=== PATIENT | female | born 1945 | race Caucasian/White ===

== ENCOUNTER 2018-04-14 17:34 | Inpatient (IN) | payer MEDICARE, MEDICAID ==
[~2018-04-14] VITALS: Ht 170.2 cm; Wt 79.6 kg
[~2018-04-14 17:34] MED LIST: ALBU5SOL6 INH; ALBU8.5H8 INH; AMLO5TAB4 PO; ASCO500T6 PO; AZIT250T89 PO; CALC200T3 PO; CEFD300C37 PO; DOXY100T PO; FAMO-79 PO; FAMO20TA7 PO; FAMO40TA61 PO; FERR324T5 PO; FLUT1DIS5 IH; HYDR-3341 PO; HYDR25TA6 PO; LEVO750T26 PO; LISI-170 PO; MECL12.52 PO; NICO-487 TD; OMEP-110 PO; OMEP20TA62 PO; OMEP40CA6 PO; PRED10TA PO; PRED20TA PO; TIOT18CA INH; UMEC62.5 INH; URSO300C27 PO; VALS160T27 PO; VALS160T3 PO; VALS80TA3 PO; VERA240C2 PO
[2018-04-14] MEDS ORDERED: ASPIRIN 81 MG TABLET CHEW PO ONE (18:30)
[2018-04-14] MEDS ORDERED: SODIUM CHLORIDE 0.9% 1,000ML IVBOLUS ONE (18:30)
[2018-04-14] MEDS ORDERED: DIOVAN PO (18:42)
[2018-04-14] MEDS ORDERED: CHOL200074 PO (18:42)
[2018-04-14] MEDS ORDERED: LIDO700A20 TD (18:42)
[2018-04-14] MEDS ORDERED: LEVA15HF4 INH (18:42)
[2018-04-14 18:44] LABS: ALANINE AMINOTRANSFERASE 33 U/L (12-78); ANION GAP 5 mmol/L (5-15); CALCIUM 9.6 mg/dL (8.5-10.1); CHLORIDE 105 mmol/L (98-107); CREATININE 0.74 mg/dL (0.55-1.02)
[2018-04-14] MEDS ORDERED: NITR0.4T28 SL (18:45)
[2018-04-14 18:46] LABS: MEAN CORPUSCULAR HEMOGLOBIN 27.1 pg (27.0-34.8); MEAN CORPUSCULAR HGB CONC 32.2 g/dL (32.4-35.8); MEAN CORPUSCULAR VOLUME 84.1 fL (80-100); MEAN PLATELET VOLUME 8.6 fL (7.4-10.4); PLATELET COUNT 336 x10^3/uL (130-400); RED BLOOD COUNT 3.89 x10^6/uL (3.82-5.3); RED CELL DISTRIBUTION WIDTH 15.5 % (9.6-15.2)
[2018-04-14 18:48] LABS: ALKALINE PHOSPHATASE 175 U/L (45-117); BILIRUBIN,TOTAL 0.2 mg/dL (0.2-1.0); TOTAL PROTEIN 6.2 g/dL (6.4-8.2); TROPONIN I 0.037 ng/mL (0.000-0.045)
[2018-04-14 19:11] LABS: MD YES
[2018-04-14 19:12] LABS: EOS#(MANUAL) 0.19 x10^3/uL (0.0-0.4); EOS% (MANUAL) 2 % (1-7); LYMPH#(MANUAL) 2.21 x10^3/uL (1-3.4); LYMPHS% (MANUAL) 23 % (22-44); MONOS#(MANUAL) 0.96 x10^3/uL (0.3-2.7); MONOS% (MANUAL) 10 % (2-9); SEG#(MANUAL) 6.24 x10^3/uL (1.8-6.8); SEGS% (MANUAL) 65 % (42-75)
[2018-04-14 19:14] LABS: <PLATELET ESTIMATE> ADEQUATE; <PLT MORPHOLOGY> NORMAL PLT MORPH; <RBC MORPHOLOGY> NORMAL
[2018-04-14] MEDS ORDERED: OMNIPAQUE 350 MG/ML, 100ML BOTTLE ONE (19:16)
[2018-04-14] MEDS ORDERED: KETAMINE 100 MG/ML, 5ML IV ONE (19:30)
[2018-04-14] MEDS ORDERED: POTASSIUM CHLORIDE 20 MEQ TAB.ER.PRT PO ONE (19:30)
[2018-04-14] MEDS ORDERED: POTASSIUM CHLORIDE 20 MEQ TAB.ER.PRT ONE (20:19)
[2018-04-14] MEDS ORDERED: morphine SULFATE 10 MG/ML, 1ML IVPush PRN (21:00)
[2018-04-14] MEDS ORDERED: ONDANSETRON ODT 4 MG PO PRN (21:00)
[2018-04-14] MEDS ORDERED: DOCUSATE 100 MG CAPSULE PO PRN (21:00)
[2018-04-14] MEDS ORDERED: NITROGLYCERIN 0.4 MG BOTTLE (25 TABS) SL PRN ×2 (21:00→21:30)
[2018-04-14] MEDS ORDERED: ZOLPIDEM 5MG TABLET PO PRN (21:00)
[2018-04-14] MEDS ORDERED: NITROGLYCERIN 0.4 MG/SPRAY SL PRN (21:00)
[2018-04-14] MEDS: LIDODERM 5% PATCH TD SCH (21:30)
[2018-04-14] MEDS ORDERED: LEVALBUTEROL TARTRATE INH SCH (21:30)
[2018-04-14 21:47] LABS: TROPONIN I 0.096 ng/mL (0.000-0.045)
[2018-04-14] MEDS: FLUTICASONE/VILANTEROL 200-25MCG/INH INH SCH (21:49)
[2018-04-14] MEDS ORDERED: ALBUTEROL SULFATE 2.5 MG/3 ML HHN PRN (22:00)
[2018-04-14 22:02] VITALS: BP 154/83
[2018-04-14 22:17] VITALS: BP 154/83
[2018-04-14] MEDS: ENOXAPARIN 40 MG/0.4 ML SQ SCH (22:28)
[2018-04-14] MEDS: URSODIOL 300 MG CAPSULE PO SCH (22:28)
[2018-04-15] MEDS ORDERED: POTASSIUM CHLORIDE 20 MEQ TAB.ER.PRT PO ONE
[2018-04-15 00:03] LABS: ANION GAP 3 mmol/L (5-15); CALCIUM 9.4 mg/dL (8.5-10.1); CHLORIDE 105 mmol/L (98-107); CREATININE 0.64 mg/dL (0.55-1.02)
[2018-04-15] MEDS: HYDROcodone/APAP 5/325 TABLET PO PRN (01:21)
[2018-04-15 01:41] VITALS: BP 176/82
[2018-04-15 03:09] LABS: TROPONIN I 0.082 ng/mL (0.000-0.045)
[2018-04-15] MEDS: ASPIRIN 81 MG TABLET EC PO SCH (05:21)
[2018-04-15 06:37] VITALS: BP 178/80
[2018-04-15] MEDS: URSODIOL 300 MG CAPSULE PO SCH ×2 (07:36→20:06)
[2018-04-15] MEDS: ASCORBIC ACID 500 MG TABLET PO SCH (07:36)
[2018-04-15] MEDS: CHOLECALCIFEROL 1,000 UNIT TABLET PO SCH (07:36)
[2018-04-15] MEDS: FERROUS SULFATE 325 MG TABLET PO SCH (07:37)
[2018-04-15] MEDS: FLUTICASONE/VILANTEROL 200-25MCG/INH INH SCH (09:24)
[2018-04-15] MEDS: methylPREDNISolone SOD SUCC 125 MG/2 ML IVPush SCH ×3 (09:24→20:26)
[2018-04-15] MEDS: GUAIFENESIN ER 600 MG TABLET PO SCH ×2 (09:24→20:06)
[2018-04-15] MEDS: ALBUTEROL SULFATE 2.5 MG/3 ML NPPB SCH ×3 (10:20→20:25)
[2018-04-15 12:08] VITALS: BP 169/79
[2018-04-15 19:29] VITALS: BP 173/87
[2018-04-15] MEDS: ENOXAPARIN 40 MG/0.4 ML SQ SCH (20:25)
[2018-04-15] MEDS: LIDODERM 5% PATCH TD SCH (20:46)
[2018-04-16 00:46] VITALS: BP 149/94
[2018-04-16] MEDS: methylPREDNISolone SOD SUCC 125 MG/2 ML IVPush SCH ×3 (03:18→15:44)
[2018-04-16] MEDS: ASPIRIN 81 MG TABLET EC PO SCH (05:18)
[2018-04-16] MEDS: ALBUTEROL SULFATE 2.5 MG/3 ML NPPB SCH ×4 (07:05→21:15)
[2018-04-16 07:16] VITALS: BP 177/84
[2018-04-16] MEDS: FLUTICASONE/VILANTEROL 200-25MCG/INH INH SCH (08:52)
[2018-04-16] MEDS: GUAIFENESIN ER 600 MG TABLET PO SCH ×2 (08:52→20:15)
[2018-04-16] MEDS: CHOLECALCIFEROL 1,000 UNIT TABLET PO SCH (08:53)
[2018-04-16] MEDS: FERROUS SULFATE 325 MG TABLET PO SCH (08:53)
[2018-04-16] MEDS: URSODIOL 300 MG CAPSULE PO SCH ×2 (08:53→20:14)
[2018-04-16] MEDS: ASCORBIC ACID 500 MG TABLET PO SCH (08:53)
[2018-04-16] MEDS ORDERED: POTASSIUM CHLORIDE 20 MEQ TAB.ER.PRT PO ONE (09:30)
[2018-04-16 09:54] LABS: ALBUMIN 2.9 g/dL (3.4-5.0); ANION GAP 7 mmol/L (5-15); CALCIUM 9.7 mg/dL (8.5-10.1); CHLORIDE 102 mmol/L (98-107); CREATININE 0.68 mg/dL (0.55-1.02)
[2018-04-16 10:00] VITALS: BP 155/81
[2018-04-16 10:19] LABS: MEAN CORPUSCULAR HEMOGLOBIN 26.5 pg (27.0-34.8); MEAN CORPUSCULAR HGB CONC 31.4 g/dL (32.4-35.8); MEAN CORPUSCULAR VOLUME 84.5 fL (80-100); MEAN PLATELET VOLUME 8.2 fL (7.4-10.4); PLATELET COUNT 317 x10^3/uL (130-400); RED BLOOD COUNT 3.01 x10^6/uL (3.82-5.3); RED CELL DISTRIBUTION WIDTH 15.9 % (9.6-15.2)
[2018-04-16 10:45] LABS: BASOPHILS % (AUTO) 0 % (0-1); EOSINOPHILS % (AUTO) 0 % (1-7); LYMPHOCYTES # (AUTO) 0.41 x10^3/uL (1-3.4); LYMPHOCYTES % (AUTO) 3 % (22-44); MD SCAN; MONOCYTES # (AUTO) 0.23 x10^3/uL (0.2-0.8); MONOCYTES % (AUTO) 2 % (2-9); NEUTROPHILS # (AUTO) 11.83 x10^3/uL (1.8-6.8); NEUTROPHILS % (AUTO) 95 % (42-75)
[2018-04-16 12:21] VITALS: BP 153/79
[2018-04-16 19:32] VITALS: BP 176/82
[2018-04-16] MEDS: ENOXAPARIN 40 MG/0.4 ML SQ SCH (20:15)
[2018-04-16] MEDS: LIDODERM 5% PATCH TD SCH (21:30)
[2018-04-16 21:51] VITALS: BP 167/81
[2018-04-17] VITALS (12 sets, daily range): BP systolic 138–191; BP diastolic 65–84
[2018-04-17] MEDS: methylPREDNISolone SOD SUCC 125 MG/2 ML IVPush SCH ×2 (03:15→15:45)
[2018-04-17] MEDS: ASPIRIN 81 MG TABLET EC PO SCH (05:52)
[2018-04-17 06:00] LABS: BASOPHILS # (AUTO) 0.01 x10^3/uL (0-0.1); BASOPHILS % (AUTO) 0 % (0-1); EOSINOPHILS % (AUTO) 0 % (1-7); LYMPHOCYTES # (AUTO) 0.55 x10^3/uL (1-3.4); LYMPHOCYTES % (AUTO) 4 % (22-44); MD NO; MEAN CORPUSCULAR HEMOGLOBIN 27.5 pg (27.0-34.8); MEAN CORPUSCULAR HGB CONC 32.7 g/dL (32.4-35.8); MEAN CORPUSCULAR VOLUME 84.2 fL (80-100); MEAN PLATELET VOLUME 7.8 fL (7.4-10.4); MONOCYTES # (AUTO) 0.51 x10^3/uL (0.2-0.8); MONOCYTES % (AUTO) 4 % (2-9); NEUTROPHILS # (AUTO) 11.88 x10^3/uL (1.8-6.8); NEUTROPHILS % (AUTO) 92 % (42-75); PLATELET COUNT 269 x10^3/uL (130-400); RED BLOOD COUNT 2.43 x10^6/uL (3.82-5.3); RED CELL DISTRIBUTION WIDTH 16.3 % (9.6-15.2)
[2018-04-17 06:12] LABS: ANION GAP 3 mmol/L (5-15); CALCIUM 9.1 mg/dL (8.5-10.1); CHLORIDE 103 mmol/L (98-107); CREATININE 0.75 mg/dL (0.55-1.02)
[2018-04-17] MEDS: ALBUTEROL SULFATE 2.5 MG/3 ML NPPB SCH ×3 (07:10→21:14)
[2018-04-17] MEDS: FERROUS SULFATE 325 MG TABLET PO SCH (09:13)
[2018-04-17] MEDS: CHOLECALCIFEROL 1,000 UNIT TABLET PO SCH (09:13)
[2018-04-17] MEDS: ASCORBIC ACID 500 MG TABLET PO SCH (09:13)
[2018-04-17] MEDS: URSODIOL 300 MG CAPSULE PO SCH ×2 (09:13→21:27)
[2018-04-17] MEDS: GUAIFENESIN ER 600 MG TABLET PO SCH ×2 (09:13→21:27)
[2018-04-17] MEDS: FLUTICASONE/VILANTEROL 200-25MCG/INH INH SCH (09:14)
[2018-04-17 14:17] LABS: OCCULT BLOOD POSITIVE (NEGATIVE)
[2018-04-17] MEDS: FAMOTIDINE 20 MG TABLET PO SCH (21:27)
[2018-04-17] MEDS: LIDODERM 5% PATCH TD SCH (21:28)
[2018-04-17] MEDS: HYDROcodone/APAP 5/325 TABLET PO PRN (22:28)
[2018-04-17] MEDS: LABETALOL 5MG/ML, 20ML IVPush PRN (22:29)
[2018-04-17] MEDS: ENALAPRILAT 1.25 MG/ML, 2ML IVPush PRN (23:41)
[2018-04-18] VITALS (8 sets, daily range): BP systolic 162–187; BP diastolic 74–87
[2018-04-18] MEDS: ENALAPRILAT 1.25 MG/ML, 2ML IVPush PRN (00:01)
[2018-04-18] MEDS: LABETALOL 5MG/ML, 20ML IVPush PRN ×2 (01:11→03:17)
[2018-04-18] MEDS: methylPREDNISolone SOD SUCC 125 MG/2 ML IVPush SCH ×2 (03:16→15:37)
[2018-04-18 05:39] LABS: BASOPHILS % (AUTO) 0 % (0-1); EOSINOPHILS % (AUTO) 0 % (1-7); LYMPHOCYTES # (AUTO) 0.67 x10^3/uL (1-3.4); LYMPHOCYTES % (AUTO) 5 % (22-44); MD NO; MEAN CORPUSCULAR HEMOGLOBIN 28.3 pg (27.0-34.8); MEAN CORPUSCULAR HGB CONC 32.9 g/dL (32.4-35.8); MEAN CORPUSCULAR VOLUME 86.1 fL (80-100); MEAN PLATELET VOLUME 8.2 fL (7.4-10.4); MONOCYTES # (AUTO) 0.68 x10^3/uL (0.2-0.8); MONOCYTES % (AUTO) 5 % (2-9); NEUTROPHILS # (AUTO) 12.53 x10^3/uL (1.8-6.8); NEUTROPHILS % (AUTO) 90 % (42-75); PLATELET COUNT 247 x10^3/uL (130-400); RED BLOOD COUNT 2.98 x10^6/uL (3.82-5.3)
[2018-04-18 05:42] LABS: ANION GAP 2 mmol/L (5-15); CALCIUM 9.1 mg/dL (8.5-10.1); CHLORIDE 102 mmol/L (98-107)
[2018-04-18 05:45] LABS: CREATININE 0.53 mg/dL (0.55-1.02)
[2018-04-18] MEDS: ASCORBIC ACID 500 MG TABLET PO SCH (08:49)
[2018-04-18] MEDS: FLUTICASONE/VILANTEROL 200-25MCG/INH INH SCH (08:49)
[2018-04-18] MEDS: URSODIOL 300 MG CAPSULE PO SCH ×2 (08:49→20:18)
[2018-04-18] MEDS: FERROUS SULFATE 325 MG TABLET PO SCH (08:50)
[2018-04-18] MEDS: GUAIFENESIN ER 600 MG TABLET PO SCH ×2 (08:50→20:19)
[2018-04-18] MEDS: CHOLECALCIFEROL 1,000 UNIT TABLET PO SCH (08:50)
[2018-04-18] MEDS: FAMOTIDINE 20 MG TABLET PO SCH ×2 (08:51→20:00)
[2018-04-18] MEDS: ALBUTEROL SULFATE 2.5 MG/3 ML NPPB SCH ×3 (09:54→19:17)
[2018-04-18] MEDS: LIDODERM 5% PATCH TD SCH (20:00)
[2018-04-19] VITALS (11 sets, daily range): BP systolic 162–186; BP diastolic 67–88
[2018-04-19] MEDS: ENALAPRILAT 1.25 MG/ML, 2ML IVPush PRN (01:48)
[2018-04-19] MEDS: HYDROcodone/APAP 5/325 TABLET PO PRN (02:50)
[2018-04-19] MEDS: methylPREDNISolone SOD SUCC 125 MG/2 ML IVPush SCH ×3 (02:50→20:11)
[2018-04-19] MEDS: LABETALOL 5MG/ML, 20ML IVPush PRN ×2 (02:51→18:56)
[2018-04-19] MEDS: ALBUTEROL SULFATE 2.5 MG/3 ML NPPB SCH ×4 (06:55→19:49)
[2018-04-19] MEDS: FAMOTIDINE 20 MG TABLET PO SCH ×2 (09:00→20:12)
[2018-04-19] MEDS: URSODIOL 300 MG CAPSULE PO SCH ×2 (09:47→20:11)
[2018-04-19] MEDS: GUAIFENESIN ER 600 MG TABLET PO SCH ×2 (09:48→20:12)
[2018-04-19] MEDS: CHOLECALCIFEROL 1,000 UNIT TABLET PO SCH (09:48)
[2018-04-19] MEDS: ASCORBIC ACID 500 MG TABLET PO SCH (09:49)
[2018-04-19] MEDS: AZITHROMYCIN 250 MG TABLET PO SCH (09:49)
[2018-04-19] MEDS: FLUTICASONE/VILANTEROL 200-25MCG/INH INH SCH (09:56)
[2018-04-19] MEDS: FERROUS SULFATE 325 MG TABLET PO SCH (09:56)
[2018-04-19] MEDS ORDERED: AMLODIPINE 5 MG TABLET PO ONE (17:00)
[2018-04-19] MEDS: LIDODERM 5% PATCH TD SCH (20:12)
[2018-04-20] VITALS (10 sets, daily range): BP systolic 154–192; BP diastolic 70–93
[2018-04-20] MEDS: ENALAPRILAT 1.25 MG/ML, 2ML IVPush PRN ×3 (03:02→10:12)
[2018-04-20] MEDS: LABETALOL 5MG/ML, 20ML IVPush PRN (05:42)
[2018-04-20] MEDS: ALBUTEROL SULFATE 2.5 MG/3 ML NPPB SCH (07:00)
[2018-04-20] MEDS: methylPREDNISolone SOD SUCC 125 MG/2 ML IVPush SCH (08:25)
[2018-04-20] MEDS: URSODIOL 300 MG CAPSULE PO SCH (08:25)
[2018-04-20] MEDS: CHOLECALCIFEROL 1,000 UNIT TABLET PO SCH (08:26)
[2018-04-20] MEDS: FAMOTIDINE 20 MG TABLET PO SCH (08:26)
[2018-04-20] MEDS: ASCORBIC ACID 500 MG TABLET PO SCH (08:26)
[2018-04-20] MEDS: GUAIFENESIN ER 600 MG TABLET PO SCH (08:26)
[2018-04-20] MEDS: AZITHROMYCIN 250 MG TABLET PO SCH (08:27)
[2018-04-20] MEDS: FERROUS SULFATE 325 MG TABLET PO SCH (08:27)
[2018-04-20] MEDS ORDERED: AMLODIPINE 5 MG TABLET PO SCH (09:00)
[2018-04-20] MEDS: FLUTICASONE/VILANTEROL 200-25MCG/INH INH SCH (10:06)
[2018-04-20] MEDS ORDERED: AMLODIPINE 5 MG TABLET PO STA (11:23)
[2018-04-20] MEDS ORDERED: DOXYCYCLINE 100MG CAP PO SCH (12:00)
[2018-04-20] MEDS ORDERED: ALBUTEROL SULFATE 2.5 MG/3 ML NPPB SCH (16:00)
[2018-04-20] MEDS ORDERED: predniSONE 50MG TABLET PO SCH (17:00)
[2018-04-20] MEDS ORDERED: PRED50TA PO (18:16)
[2018-04-20] MEDS ORDERED: GUAI600T31 PO (18:16)
[2018-04-20] MEDS ORDERED: PRED20TA PO (18:16)
[2018-04-20] MEDS ORDERED: AMLO5TAB2 PO (18:16)
[2018-04-20] MEDS ORDERED: PRED5TAB PO (18:16)
[2018-04-20] MEDS ORDERED: PRED10TA PO (18:16)
[2018-04-20] MEDS ORDERED: DOXY100C2 PO (18:16)
[2018-04-20] MEDS ORDERED: FAMO20TA7 PO (18:16)
[2018-04-21] MEDS ORDERED: AMLODIPINE 5 MG TABLET PO SCH (09:00)
== END 2018-04-20 19:02 | disposition home or self-care (01) | DRG 189 ==
LOC: ED 19:39 → 4WST 21:28
PROVIDERS: ADMIT Family Medicine; ATTEND Family Medicine
PROC: 30233N1 Transfusion of Nonautologous Red Blood Cells into Peripheral Vein, Percutaneous Approach (ICD-10-PCS; principal; 2018-04-17)
DX: J96.20 Acute and chronic respiratory failure, unspecified whether with hypoxia or hypercapnia (principal); J44.1 Chronic obstructive pulmonary disease with (acute) exacerbation; E87.0 Hyperosmolality and hypernatremia; K92.2 Gastrointestinal hemorrhage, unspecified; R07.9 Chest pain, unspecified; D63.8 Anemia in other chronic diseases classified elsewhere; E87.6 Hypokalemia; F17.200 Nicotine dependence, unspecified, uncomplicated; I11.9 Hypertensive heart disease without heart failure; Z79.82 Long term (current) use of aspirin; Z82.49 Family history of ischemic heart disease and other diseases of the circulatory system; Z80.9 Family history of malignant neoplasm, unspecified; Z90.710 Acquired absence of both cervix and uterus; Z99.81 Dependence on supplemental oxygen; Z71.6 Tobacco abuse counseling; Z88.0 Allergy status to penicillin
CPT/HCPCS: 36415; 71045; 71046; 71275; 80048; 80053; 82040; 82272; 82728; 83540; 83550; 83880; 84484; 85014; 85018; 85025; 86850; 86900; 86923; 93005; 94640; 96360; 96361; J1650; J7613; Q9967; J2930; J7030; J7512; P9016

== ENCOUNTER → 2018-06-18 | Outpatient (CLI) | payer MEDICARE, OTHER ==
[~2018-06-18] MED LIST changes: +AMLO5TAB7 PO; +CHOL200074 PO; +DIOVAN PO; +DOXY100C2 PO; +GUAI600T31 PO; +LEVA15HF4 INH; +LIDO700A20 TD; +NITR0.4T28 SL; +PRED50TA PO; +PRED5TAB PO
== END | disposition home or self-care (01) ==
LOC: CFH 10:27
PROVIDERS: ATTEND Physician Assistant
DX: K74.3 Primary biliary cirrhosis (principal); J44.9 Chronic obstructive pulmonary disease, unspecified; D50.9 Iron deficiency anemia, unspecified; R68.81 Early satiety
CPT/HCPCS: 76705

== ENCOUNTER 2018-11-07 01:43 | Inpatient (IN) | payer MEDICARE, MEDICAID ==
[~2018-11-07] VITALS: Ht 165.1 cm; Wt 82.2 kg
[~2018-11-07 01:43] MED LIST changes: +AMLO-150 PO; -AMLO5TAB7 PO
[2018-11-07] MEDS ORDERED: ALBUTEROL/IPRATROPIUM 2.5MG/0.5MG, 3 ML ONE ×2 (01:47→05:02)
--- NOTE | 2018-11-07 01:48 | NUR ---
PT BROUGHT IN BY [facility] FOR DIFFICULTY BREATHING. CURRENTLY ON NEB TX, PT RECENTLY VOMITED. EMS GAVE 4MG OF ZOFRAN AND [facility] ANOTHER 4MG. PT HAD 3 ALBUTEROL TX AT HOME, TO WITH EMS AND 2 MORE IN FLIGHT ALONG WITH AN ATROVENT TX. PT INITIAL SATS IN MID 60'S ON SCENE, MID 90'S IN FLIGHT. PT IS TRIPODING AND USING ACCESSORY MUSCELS TO BREATH, APPEARS TO BE TIRING. MD AT BEDSIDE
[2018-11-07] MEDS ORDERED: CEFTRIAXONE 1,000 MG ONE (01:55)
[2018-11-07] MEDS ORDERED: methylPREDNISolone SOD SUCC 125 MG/2 ML ONE (01:56)
[2018-11-07] MEDS ORDERED: LIDOCAINE-MPF 1%, 2ML ONE (01:57)
[2018-11-07] MEDS ORDERED: CEFTRIAXONE 1,000 MG IM ONE (02:00)
[2018-11-07] MEDS ORDERED: AZITHROMYCIN 500 MG in SODIUM CHLORIDE 0.9% 250 ML IVPB ONE (02:00)
[2018-11-07] MEDS ORDERED: methylPREDNISolone SOD SUCC 125 MG/2 ML IVP ONE (02:00)
--- NOTE | 2018-11-07 02:19 | NUR ---
CRITICAL LAB, pH 7.197, CO2 TEMP CORRECT 88.1, CO2 NON TEMP CORRECT 90.4
[2018-11-07] MEDS ORDERED: PROMETHAZINE 25 MG/ML, 1ML ONE (02:28)
[2018-11-07 02:29] LABS: ALANINE AMINOTRANSFERASE 27 U/L (12-78); ALBUMIN 3.5 g/dL (3.4-5.0); ANION GAP 3 mmol/L (5-15); CALCIUM 10.2 mg/dL (8.5-10.1); CHLORIDE 106 mmol/L (98-107); CREATININE 0.72 mg/dL (0.55-1.02)
[2018-11-07] MEDS ORDERED: CEFTRIAXONE PMX 1GM/50ML 50 ML ONE (02:29)
[2018-11-07] MEDS ORDERED: PROMETHAZINE 25 MG/ML, 1ML IM ONE (02:30)
[2018-11-07] MEDS ORDERED: CEFTRIAXONE PMX 1GM/50ML 50 ML IV ONE (02:30)
[2018-11-07 02:33] LABS: ALKALINE PHOSPHATASE 236 U/L (45-117); BILIRUBIN,TOTAL 0.3 mg/dL (0.2-1.0); TOTAL PROTEIN 6.7 g/dL (6.4-8.2); TROPONIN I 0.076 ng/mL (0.000-0.045)
--- NOTE | 2018-11-07 02:34 | NUR ---
assumed care for this pt.
--- NOTE | 2018-11-07 02:37 | NUR ---
PT MOVED TO T-3 FOR CLOSER WATCHING ON BI PAP. PT REPORTS BREATING IMPROVED AND. NAUSEA. IV MEDS RUNNING ORDERED.
[2018-11-07 02:51] LABS: BASOPHILS # (AUTO) 0.05 x10^3/uL (0-0.1); BASOPHILS % (AUTO) 0 % (0-1); EOSINOPHILS # (AUTO) 0.12 x10^3/uL (0-0.4); EOSINOPHILS % (AUTO) 1 % (1-7); LYMPHOCYTES % (AUTO) 5 % (22-44); MD NO; MEAN CORPUSCULAR HEMOGLOBIN 26.7 pg (27.0-34.8); MEAN CORPUSCULAR VOLUME 83.6 fL (80-100); MEAN PLATELET VOLUME 8.8 fL (7.4-10.4); MONOCYTES # (AUTO) 0.87 x10^3/uL (0.2-0.8); MONOCYTES % (AUTO) 6 % (2-9); NEUTROPHILS # (AUTO) 13.86 x10^3/uL (1.8-6.8); NEUTROPHILS % (AUTO) 89 % (42-75); PLATELET COUNT 362 x10^3/uL (130-400); RED BLOOD COUNT 5.06 x10^6/uL (3.82-5.3); RED CELL DISTRIBUTION WIDTH 17.9 % (9.6-15.2)
--- NOTE | 2018-11-07 03:14 | NUR ---
PT WITH FLU SWAB SENT TO THE LAB. DAUGHTER REMAINS AT BEDSIDE.
--- NOTE | 2018-11-07 03:59 | NUR ---
ADMIT MD TO BEDSIDE AWAITING ORDERS AND TRANSPORT TO CCU.
[2018-11-07 04:11] LABS: RAPID INFLUENZA A Negative (Negative); RAPID INFLUENZA B Negative (Negative)
[2018-11-07] MEDS ORDERED: GUAIFENESIN/DM 200-20MG, 10ML UDC PO PRN (04:30)
[2018-11-07] MEDS ORDERED: NITROGLYCERIN 0.4 MG BOTTLE (25 TABS) SL PRN (05:00)
[2018-11-07] MEDS ORDERED: TEMPLATE NON-FORMULARY MED. (Albuterol Sulfate (Proair Hfa) 2 PUFF(S)) INH PRN (05:00)
[2018-11-07 05:20] VITALS: BP 121/74
[2018-11-07] MEDS ORDERED: ALBUTEROL/IPRATROPIUM 2.5MG/0.5MG, 3 ML NPPB PRN (05:30)
[2018-11-07 05:54] LABS: ALANINE AMINOTRANSFERASE 29 U/L (12-78); ALBUMIN 3.2 g/dL (3.4-5.0); ANION GAP 3 mmol/L (5-15); CALCIUM 9.8 mg/dL (8.5-10.1); CHLORIDE 108 mmol/L (98-107); CREATININE 0.74 mg/dL (0.55-1.02); MEAN CORPUSCULAR HEMOGLOBIN 26.6 pg (27.0-34.8); MEAN CORPUSCULAR VOLUME 83.1 fL (80-100); MEAN PLATELET VOLUME 8.5 fL (7.4-10.4); PLATELET COUNT 300 x10^3/uL (130-400); RED BLOOD COUNT 4.65 x10^6/uL (3.82-5.3); RED CELL DISTRIBUTION WIDTH 15.9 % (9.6-15.2)
[2018-11-07 05:57] LABS: ALKALINE PHOSPHATASE 215 U/L (45-117); BILIRUBIN,TOTAL 0.3 mg/dL (0.2-1.0); TOTAL PROTEIN 6.4 g/dL (6.4-8.2)
[2018-11-07] MEDS: DOXYCYCLINE 100 MG in DEXTROSE 5% 250 ML IVPB SCH ×2 (06:00→18:16)
[2018-11-07] MEDS: ALBUTEROL/IPRATROPIUM 2.5MG/0.5MG, 3 ML NPPB SCH ×4 (06:13→20:01)
[2018-11-07 06:22] LABS: BASOPHILS % (AUTO) 0 % (0-1); EOSINOPHILS % (AUTO) 0 % (1-7); LYMPHOCYTES # (AUTO) 0.21 x10^3/uL (1-3.4); LYMPHOCYTES % (AUTO) 2 % (22-44); MD SCAN; MONOCYTES # (AUTO) 0.23 x10^3/uL (0.2-0.8); MONOCYTES % (AUTO) 2 % (2-9); NEUTROPHILS % (AUTO) 96 % (42-75)
[2018-11-07] MEDS: LIDODERM 5% PATCH TD SCH (07:00)
[2018-11-07] MEDS: ENOXAPARIN 40 MG/0.4 ML SQ SCH (08:00)
[2018-11-07] MEDS: FERROUS SULFATE 325 MG TABLET PO SCH (08:01)
[2018-11-07] MEDS: URSODIOL 300 MG CAPSULE PO SCH ×2 (08:01→19:56)
[2018-11-07] MEDS: AMLODIPINE 5 MG TABLET PO SCH (08:01)
[2018-11-07] MEDS: CHOLECALCIFEROL 1,000 UNIT TABLET PO SCH (08:01)
[2018-11-07] MEDS: ASCORBIC ACID 500 MG TABLET PO SCH (08:01)
[2018-11-07] MEDS: FAMOTIDINE 20 MG TABLET PO SCH ×2 (08:02→19:56)
[2018-11-07] MEDS: methylPREDNISolone SOD SUCC 125 MG/2 ML IVPush SCH ×3 (08:02→19:56)
[2018-11-07] MEDS: VALSARTAN 160 MG TABLET PO SCH (08:05)
[2018-11-07] MEDS ORDERED: FLUTICASONE/VILANTEROL 200-25MCG/INH INH SCH (09:00)
[2018-11-07 10:09] LABS: TROPONIN I 0.385 ng/mL (0.000-0.045)
[2018-11-07] MEDS: MONTELUKAST 10 MG TABLET PO SCH (13:43)
[2018-11-07 13:48] LABS: TROPONIN I 0.385 ng/mL (0.000-0.045)
[2018-11-08] MEDS ORDERED: SENNA/DOCUSATE TABLET PO PRN (00:30)
[2018-11-08] MEDS ORDERED: ACETAMINOPHEN 325 MG TABLET PO PRN (00:30)
[2018-11-08] MEDS ORDERED: SENNA/DOCUSATE TABLET ONE (00:33)
[2018-11-08] MEDS ORDERED: ACETAMINOPHEN 325 MG TABLET ONE (00:33)
[2018-11-08] MEDS: methylPREDNISolone SOD SUCC 125 MG/2 ML IVPush SCH ×2 (00:42→06:06)
[2018-11-08] MEDS: CEFTRIAXONE PMX 1GM/50ML 50 ML IVPB SCH (02:01)
[2018-11-08 04:30] LABS: BASOPHILS % (AUTO) 0 % (0-1); EOSINOPHILS % (AUTO) 0 % (1-7); LYMPHOCYTES # (AUTO) 0.43 x10^3/uL (1-3.4); LYMPHOCYTES % (AUTO) 4 % (22-44); MD NO; MEAN CORPUSCULAR HGB CONC 32.4 g/dL (32.4-35.8); MEAN CORPUSCULAR VOLUME 83.3 fL (80-100); MEAN PLATELET VOLUME 8.8 fL (7.4-10.4); MONOCYTES # (AUTO) 0.24 x10^3/uL (0.2-0.8); MONOCYTES % (AUTO) 3 % (2-9); NEUTROPHILS # (AUTO) 9.14 x10^3/uL (1.8-6.8); NEUTROPHILS % (AUTO) 93 % (42-75); PLATELET COUNT 277 x10^3/uL (130-400); RED BLOOD COUNT 4.33 x10^6/uL (3.82-5.3); RED CELL DISTRIBUTION WIDTH 17.2 % (9.6-15.2)
[2018-11-08 04:34] LABS: ANION GAP 3 mmol/L (5-15); CALCIUM 9.7 mg/dL (8.5-10.1); CHLORIDE 104 mmol/L (98-107); CREATININE 0.64 mg/dL (0.55-1.02)
[2018-11-08] MEDS: ENOXAPARIN 40 MG/0.4 ML SQ SCH (06:06)
[2018-11-08] MEDS: DOXYCYCLINE 100 MG in DEXTROSE 5% 250 ML IVPB SCH ×2 (06:06→17:50)
[2018-11-08] MEDS: LIDODERM 5% PATCH TD SCH (06:12)
[2018-11-08] MEDS: ALBUTEROL/IPRATROPIUM 2.5MG/0.5MG, 3 ML NPPB SCH ×4 (07:27→21:50)
[2018-11-08] MEDS: BUDESONIDE 0.5 MG/2 ML INHA NPPB SCH ×2 (07:27→21:50)
[2018-11-08] MEDS: URSODIOL 300 MG CAPSULE PO SCH ×2 (07:34→21:53)
[2018-11-08] MEDS: FERROUS SULFATE 325 MG TABLET PO SCH (07:35)
[2018-11-08] MEDS: VALSARTAN 160 MG TABLET PO SCH (07:35)
[2018-11-08] MEDS: FAMOTIDINE 20 MG TABLET PO SCH (07:35)
[2018-11-08] MEDS: CHOLECALCIFEROL 1,000 UNIT TABLET PO SCH (07:35)
[2018-11-08] MEDS: ASCORBIC ACID 500 MG TABLET PO SCH (07:35)
[2018-11-08] MEDS: MONTELUKAST 10 MG TABLET PO SCH (07:35)
[2018-11-08] MEDS: AMLODIPINE 5 MG TABLET PO SCH (07:36)
[2018-11-08] MEDS ORDERED: TEMPLATE NON-FORMULARY MED. (Albuterol Sulfate (Proair Hfa) 2 PUFF(S)) INH PRN (07:58)
[2018-11-08] MEDS ORDERED: FUROSEMIDE 40 MG/4 ML IV ONE (08:30)
[2018-11-08] MEDS: PANTOPROZOLE 40MG TABLET PO SCH (10:26)
[2018-11-08] MEDS ORDERED: AMLODIPINE 5 MG TABLET PO ONE (10:30)
[2018-11-08] MEDS: FLUTICASONE/VILANTEROL 200-25MCG/INH INH SCH (10:34)
[2018-11-08 18:05] VITALS: BP 143/68
[2018-11-08 19:39] VITALS: BP 151/71
[2018-11-09 00:20] VITALS: BP 150/68
[2018-11-09] MEDS: CEFTRIAXONE PMX 1GM/50ML 50 ML IVPB SCH (02:26)
[2018-11-09 04:27] LABS: BASOPHILS % (AUTO) 0 % (0-1); EOSINOPHILS % (AUTO) 1 % (1-7); LYMPHOCYTES % (AUTO) 8 % (22-44); MD NO; MEAN CORPUSCULAR HEMOGLOBIN 27.4 pg (27.0-34.8); MEAN CORPUSCULAR HGB CONC 33.1 g/dL (32.4-35.8); MEAN CORPUSCULAR VOLUME 82.9 fL (80-100); MEAN PLATELET VOLUME 8.7 fL (7.4-10.4); MONOCYTES # (AUTO) 1.29 x10^3/uL (0.2-0.8); MONOCYTES % (AUTO) 12 % (2-9); NEUTROPHILS # (AUTO) 8.68 x10^3/uL (1.8-6.8); NEUTROPHILS % (AUTO) 79 % (42-75); PLATELET COUNT 268 x10^3/uL (130-400); RED BLOOD COUNT 4.02 x10^6/uL (3.82-5.3); RED CELL DISTRIBUTION WIDTH 16.4 % (9.6-15.2)
[2018-11-09 04:39] LABS: ANION GAP 2 mmol/L (5-15); CALCIUM 9.8 mg/dL (8.5-10.1); CHLORIDE 104 mmol/L (98-107)
[2018-11-09 04:40] LABS: CREATININE 0.57 mg/dL (0.55-1.02)
[2018-11-09] MEDS: DOXYCYCLINE 100 MG in DEXTROSE 5% 250 ML IVPB SCH ×2 (05:35→18:53)
[2018-11-09] MEDS: PANTOPROZOLE 40MG TABLET PO SCH (05:35)
[2018-11-09] MEDS: ALBUTEROL/IPRATROPIUM 2.5MG/0.5MG, 3 ML NPPB SCH ×4 (06:40→21:00)
[2018-11-09] MEDS: BUDESONIDE 0.5 MG/2 ML INHA NPPB SCH ×2 (06:40→21:00)
[2018-11-09 06:51] VITALS: BP 179/94
[2018-11-09] MEDS: FLUTICASONE/VILANTEROL 200-25MCG/INH INH SCH (11:15)
[2018-11-09] MEDS: ENOXAPARIN 40 MG/0.4 ML SQ SCH (11:15)
[2018-11-09] MEDS: VALSARTAN 160 MG TABLET PO SCH (11:16)
[2018-11-09] MEDS: CHOLECALCIFEROL 1,000 UNIT TABLET PO SCH (11:16)
[2018-11-09] MEDS: MONTELUKAST 10 MG TABLET PO SCH (11:17)
[2018-11-09] MEDS: AMLODIPINE 5 MG TABLET PO SCH (11:17)
[2018-11-09] MEDS: ASCORBIC ACID 500 MG TABLET PO SCH (11:17)
[2018-11-09] MEDS: FERROUS SULFATE 325 MG TABLET PO SCH (11:17)
[2018-11-09] MEDS: URSODIOL 300 MG CAPSULE PO SCH ×2 (11:17→20:28)
[2018-11-09] MEDS: LIDODERM 5% PATCH TD SCH (11:18)
[2018-11-09 13:04] VITALS: BP 92/56
[2018-11-09 18:49] VITALS: BP 161/78
[2018-11-10] MEDS: CEFTRIAXONE PMX 1GM/50ML 50 ML IVPB SCH (02:01)
[2018-11-10 02:14] VITALS: BP 181/87
[2018-11-10 04:36] LABS: BASOPHILS # (AUTO) 0.01 x10^3/uL (0-0.1); BASOPHILS % (AUTO) 0 % (0-1); EOSINOPHILS # (AUTO) 0.13 x10^3/uL (0-0.4); EOSINOPHILS % (AUTO) 2 % (1-7); LYMPHOCYTES # (AUTO) 0.97 x10^3/uL (1-3.4); LYMPHOCYTES % (AUTO) 13 % (22-44); MD NO; MEAN CORPUSCULAR HEMOGLOBIN 27.1 pg (27.0-34.8); MEAN CORPUSCULAR HGB CONC 32.7 g/dL (32.4-35.8); MEAN CORPUSCULAR VOLUME 82.9 fL (80-100); MEAN PLATELET VOLUME 8.6 fL (7.4-10.4); MONOCYTES # (AUTO) 1.05 x10^3/uL (0.2-0.8); MONOCYTES % (AUTO) 14 % (2-9); NEUTROPHILS # (AUTO) 5.55 x10^3/uL (1.8-6.8); NEUTROPHILS % (AUTO) 72 % (42-75); PLATELET COUNT 300 x10^3/uL (130-400); RED BLOOD COUNT 4.11 x10^6/uL (3.82-5.3); RED CELL DISTRIBUTION WIDTH 16.5 % (9.6-15.2)
[2018-11-10 04:45] LABS: CHLORIDE 104 mmol/L (98-107)
[2018-11-10 04:51] LABS: ANION GAP 2 mmol/L (5-15); CREATININE 0.42 mg/dL (0.55-1.02)
[2018-11-10] MEDS: DOXYCYCLINE 100 MG in DEXTROSE 5% 250 ML IVPB SCH ×2 (05:41→18:35)
[2018-11-10] MEDS: PANTOPROZOLE 40MG TABLET PO SCH (05:45)
[2018-11-10] MEDS: LIDODERM 5% PATCH TD SCH (06:31)
[2018-11-10] MEDS: ALBUTEROL/IPRATROPIUM 2.5MG/0.5MG, 3 ML NPPB SCH ×4 (06:57→20:10)
[2018-11-10] MEDS: BUDESONIDE 0.5 MG/2 ML INHA NPPB SCH ×2 (06:57→20:10)
[2018-11-10 07:53] VITALS: BP 179/90
[2018-11-10] MEDS: VALSARTAN 160 MG TABLET PO SCH (10:49)
[2018-11-10] MEDS: ASCORBIC ACID 500 MG TABLET PO SCH (10:49)
[2018-11-10] MEDS: ENOXAPARIN 40 MG/0.4 ML SQ SCH (10:50)
[2018-11-10] MEDS: CHOLECALCIFEROL 1,000 UNIT TABLET PO SCH (10:50)
[2018-11-10] MEDS: AMLODIPINE 5 MG TABLET PO SCH (10:50)
[2018-11-10] MEDS: MONTELUKAST 10 MG TABLET PO SCH (10:51)
[2018-11-10] MEDS: FLUTICASONE/VILANTEROL 200-25MCG/INH INH SCH (10:51)
[2018-11-10] MEDS: FERROUS SULFATE 325 MG TABLET PO SCH (10:54)
[2018-11-10] MEDS: URSODIOL 300 MG CAPSULE PO SCH ×2 (10:54→20:06)
[2018-11-10 12:58] VITALS: BP 148/79
[2018-11-10 19:46] VITALS: BP 179/84
[2018-11-11] MEDS: CEFTRIAXONE PMX 1GM/50ML 50 ML IVPB SCH (02:05)
[2018-11-11 02:27] VITALS: BP 157/79
[2018-11-11] MEDS: LIDODERM 5% PATCH TD SCH (05:48)
[2018-11-11] MEDS: PANTOPROZOLE 40MG TABLET PO SCH (05:48)
[2018-11-11] MEDS: DOXYCYCLINE 100 MG in DEXTROSE 5% 250 ML IVPB SCH (05:48)
[2018-11-11] MEDS: BUDESONIDE 0.5 MG/2 ML INHA NPPB SCH (06:59)
[2018-11-11] MEDS: ALBUTEROL/IPRATROPIUM 2.5MG/0.5MG, 3 ML NPPB SCH ×2 (06:59→10:18)
[2018-11-11] MEDS ORDERED: METH4TAB2 PO (09:08)
[2018-11-11] MEDS: CHOLECALCIFEROL 1,000 UNIT TABLET PO SCH (09:47)
[2018-11-11] MEDS: MONTELUKAST 10 MG TABLET PO SCH (09:47)
[2018-11-11] MEDS: URSODIOL 300 MG CAPSULE PO SCH (09:47)
[2018-11-11] MEDS: ASCORBIC ACID 500 MG TABLET PO SCH (09:47)
[2018-11-11] MEDS: AMLODIPINE 5 MG TABLET PO SCH (09:48)
[2018-11-11] MEDS: FERROUS SULFATE 325 MG TABLET PO SCH (09:48)
[2018-11-11] MEDS: VALSARTAN 160 MG TABLET PO SCH (09:48)
[2018-11-11] MEDS: FLUTICASONE/VILANTEROL 200-25MCG/INH INH SCH (09:49)
[2018-11-11 09:55] VITALS: BP 155/75
[2018-11-11] MEDS: ENOXAPARIN 40 MG/0.4 ML SQ SCH (11:00)
[2018-11-11 12:37] VITALS: BP 169/90
== END 2018-11-11 17:02 | disposition home or self-care (01) | DRG 177 ==
LOC: ED 02:30 → EDIP 03:37 → CCU 04:59 → 3NW 11-08 17:30
PROVIDERS: ADMIT Internal Medicine; ATTEND Internal Medicine
PROC: 5A09357 Assistance with Respiratory Ventilation, Less than 24 Consecutive Hours, Continuous Positive Airway Pressure (ICD-10-PCS; principal; 2018-11-07)
DX: J15.6 Pneumonia due to other Gram-negative bacteria (principal); J96.21 Acute and chronic respiratory failure with hypoxia; G93.41 Metabolic encephalopathy; J96.22 Acute and chronic respiratory failure with hypercapnia; J44.1 Chronic obstructive pulmonary disease with (acute) exacerbation; E87.4 Mixed disorder of acid-base balance; I11.0 Hypertensive heart disease with heart failure; J18.9 Pneumonia, unspecified organism; F17.210 Nicotine dependence, cigarettes, uncomplicated; G47.33 Obstructive sleep apnea (adult) (pediatric); I25.9 Chronic ischemic heart disease, unspecified; K57.90 Diverticulosis of intestine, part unspecified, without perforation or abscess without bleeding; I25.10 Atherosclerotic heart disease of native coronary artery without angina pectoris; I35.1 Nonrheumatic aortic (valve) insufficiency; I50.9 Heart failure, unspecified; K21.9 Gastro-esophageal reflux disease without esophagitis; Z66 Do not resuscitate; D50.0 Iron deficiency anemia secondary to blood loss (chronic); K74.60 Unspecified cirrhosis of liver; Z88.0 Allergy status to penicillin; Z90.710 Acquired absence of both cervix and uterus; Z99.81 Dependence on supplemental oxygen
CPT/HCPCS: 36415; 36600; 71045; 80048; 80053; 82803; 83735; 83880; 84100; 84484; 85025; 87040; 87070; 87081; 87205; 87400; 93005; 93306; 94640; 94660; 96365; 96366; 96372; 96375; 99291; G0378; J0456; J0696; J1650; J1940; J2550; J7060; J7620; J7626; J2930; J7050; J7512

== ENCOUNTER 2019-04-07 09:32 | Inpatient (IN) | payer MEDICARE, MEDICAID ==
[~2019-04-07] VITALS: Ht 170.2 cm; Wt 78.9 kg
[~2019-04-07 09:32] MED LIST changes: +METH4TAB2 PO
[2019-04-07 10:55] VITALS: BP 159/82
[2019-04-07 11:04] VITALS: BP 160/76
[2019-04-07 12:16] VITALS: BP 159/73
[2019-04-07] MEDS ORDERED: CYCLOBENZAPRINE 10 MG TABLET PO PRN (12:30)
[2019-04-07] MEDS ORDERED: ONDANSETRON 2MG/ML, 2ML IVPush PRN (12:30)
[2019-04-07] MEDS ORDERED: LIDODERM 5% PATCH TD SCH (12:30)
[2019-04-07] MEDS ORDERED: hydrALAzine 20 MG/ML, 1ML IVPush PRN (12:30)
[2019-04-07] MEDS ORDERED: morphine SULFATE 10 MG/ML, 1ML IVPush PRN (12:30)
[2019-04-07 13:09] LABS: BASOPHILS # (AUTO) 0.03 x10^3/uL (0-0.1); BASOPHILS % (AUTO) 0 % (0-1); EOSINOPHILS # (AUTO) 0.16 x10^3/uL (0-0.4); EOSINOPHILS % (AUTO) 2 % (1-7); LYMPHOCYTES # (AUTO) 1.23 x10^3/uL (1-3.4); LYMPHOCYTES % (AUTO) 14 % (22-44); MD NO; MEAN CORPUSCULAR HGB CONC 32.3 g/dL (32.4-35.8); MEAN CORPUSCULAR VOLUME 86.8 fL (80-100); MEAN PLATELET VOLUME 6.3 fL (7.4-10.4); MONOCYTES # (AUTO) 0.82 x10^3/uL (0.2-0.8); MONOCYTES % (AUTO) 10 % (2-9); NEUTROPHILS # (AUTO) 6.31 x10^3/uL (1.8-6.8); NEUTROPHILS % (AUTO) 74 % (42-75); PLATELET COUNT 367 x10^3/uL (130-400); RED CELL DISTRIBUTION WIDTH 16.7 % (9.6-15.2)
[2019-04-07 13:19] LABS: INTERNATIONAL NORMALIZED RATIO 0.93 (0.93-1.1); PROTHROMBIN TIME 9.8 Seconds (9.6-11.5)
[2019-04-07 13:22] LABS: ALBUMIN 2.9 g/dL (3.4-5.0); CALCIUM 9.2 mg/dL (8.5-10.1); CREATININE 0.41 mg/dL (0.55-1.02)
[2019-04-07 13:27] LABS: ALANINE AMINOTRANSFERASE 15 U/L (12-78); ALKALINE PHOSPHATASE 152 U/L (45-117); BILIRUBIN,TOTAL 0.3 mg/dL (0.2-1.0); CHLORIDE 105 mmol/L (98-107); TOTAL PROTEIN 5.9 g/dL (6.4-8.2)
[2019-04-07 13:29] LABS: ANION GAP 5 mmol/L (5-15)
[2019-04-07] MEDS ORDERED: ALBUTEROL SULFATE 2.5 MG/3 ML NPPB PRN (13:30)
[2019-04-07] MEDS ORDERED: IPRA3AMP30 NEB (13:40)
[2019-04-07] MEDS ORDERED: AMLO-150 PO (13:40)
[2019-04-07] MEDS ORDERED: CHOL500062 PO (13:40)
[2019-04-07] MEDS ORDERED: FLUT1DIS IH (13:40)
[2019-04-07] MEDS ORDERED: FLUT15.87 NAS (13:40)
[2019-04-07] MEDS ORDERED: ROSU5TAB PO (13:40)
[2019-04-07] MEDS ORDERED: ROFL500T PO (13:40)
[2019-04-07] MEDS: NICOTINE 21 MG/24 HR PATCH.TD24 TD SCH (13:53)
[2019-04-07] MEDS ORDERED: LIDOCAINE-MPF 1%, 5ML ONE (14:13)
[2019-04-07] MEDS ORDERED: MIDAZOLAM 1 MG/ML, 5ML ONE (14:30)
[2019-04-07] MEDS ORDERED: NALOXONE 1 MG/ML, 2ML ONE (14:30)
[2019-04-07] MEDS ORDERED: FLUMAZENIL 0.1 MG/1 ML, 5ML ONE (14:30)
[2019-04-07] MEDS ORDERED: FENTANYL PF 100 MCG/2ML ONE (14:30)
[2019-04-07] MEDS: OXYcodone IR 5MG TABLET PO PRN (17:28)
[2019-04-07] MEDS: LEVALBUTEROL TARTRATE INH SCH ×2 (17:29→20:10)
[2019-04-07] MEDS: METOPROLOL TARTRATE 25 MG TABLET PO SCH (17:29)
[2019-04-07] MEDS ORDERED: LABETALOL 5 MG/ML SYR. (IV ONLY) IVPush PRN (17:30)
[2019-04-07] MEDS: CHOLECALCIFEROL 5,000u TAB PO SCH (17:30)
[2019-04-07] MEDS ORDERED: ALBUTEROL/IPRATROPIUM 2.5MG/0.5MG, 3 ML NPPB PRN (17:30)
[2019-04-07] MEDS: URSODIOL 300 MG CAPSULE PO SCH (20:09)
[2019-04-07] MEDS: FLUTICASONE INH SCH (20:10)
[2019-04-07] MEDS: GUAIFENESIN ER 600 MG TABLET PO SCH (20:10)
[2019-04-07] MEDS: SALMETEROL INH SCH (20:10)
[2019-04-07 20:36] VITALS: BP 123/75
[2019-04-07 20:40] VITALS: BP 113/70
[2019-04-07 20:45] VITALS: BP 97/60
[2019-04-07] MEDS ORDERED: TEMPLATE NON-FORMULARY MED. (Fluticasone/Salmeterol** (Advair 500-50 Diskus**) 1 PUFF) IH SCH (21:00)
[2019-04-07] MEDS: ALBUTEROL/IPRATROPIUM 2.5MG/0.5MG, 3 ML NPPB SCH (21:50)
[2019-04-08] VITALS (10 sets, daily range): BP systolic 122–134; BP diastolic 63–79
[2019-04-08] MEDS: OXYcodone IR 5MG TABLET PO PRN (01:13)
[2019-04-08] MEDS: LEVALBUTEROL TARTRATE INH SCH ×4 (05:37→20:13)
[2019-04-08] MEDS: METOPROLOL TARTRATE 25 MG TABLET PO SCH ×2 (05:38→17:22)
[2019-04-08 05:48] LABS: BASOPHILS # (AUTO) 0.02 x10^3/uL (0-0.1); BASOPHILS % (AUTO) 0 % (0-1); EOSINOPHILS # (AUTO) 0.17 x10^3/uL (0-0.4); EOSINOPHILS % (AUTO) 2 % (1-7); LYMPHOCYTES # (AUTO) 0.89 x10^3/uL (1-3.4); LYMPHOCYTES % (AUTO) 13 % (22-44); MD NO; MEAN CORPUSCULAR HEMOGLOBIN 28.4 pg (27.0-34.8); MEAN CORPUSCULAR HGB CONC 32.1 g/dL (32.4-35.8); MEAN CORPUSCULAR VOLUME 88.3 fL (80-100); MEAN PLATELET VOLUME 7.1 fL (7.4-10.4); MONOCYTES # (AUTO) 0.66 x10^3/uL (0.2-0.8); MONOCYTES % (AUTO) 9 % (2-9); NEUTROPHILS # (AUTO) 5.39 x10^3/uL (1.8-6.8); NEUTROPHILS % (AUTO) 76 % (42-75); PLATELET COUNT 292 x10^3/uL (130-400); RED BLOOD COUNT 2.75 x10^6/uL (3.82-5.3)
[2019-04-08 06:01] LABS: CHLORIDE 106 mmol/L (98-107)
[2019-04-08 06:17] LABS: ANION GAP 3 mmol/L (5-15); CALCIUM 8.7 mg/dL (8.5-10.1); CREATININE 0.46 mg/dL (0.55-1.02)
[2019-04-08] MEDS: ALBUTEROL/IPRATROPIUM 2.5MG/0.5MG, 3 ML NPPB SCH ×4 (07:15→19:51)
[2019-04-08] MEDS ORDERED: CHOLECALCIFEROL 1,000 UNIT TABLET PO SCH (09:00)
[2019-04-08] MEDS ORDERED: AMLODIPINE 5 MG TABLET PO SCH (09:00)
[2019-04-08] MEDS: FERROUS SULFATE 325 MG TABLET PO SCH (09:28)
[2019-04-08] MEDS: URSODIOL 300 MG CAPSULE PO SCH ×2 (09:28→20:10)
[2019-04-08] MEDS: GUAIFENESIN ER 600 MG TABLET PO SCH ×2 (09:28→20:12)
[2019-04-08] MEDS: CHOLECALCIFEROL 5,000u TAB PO SCH (09:28)
[2019-04-08] MEDS: SALMETEROL INH SCH ×2 (09:29→20:13)
[2019-04-08] MEDS: VALSARTAN 160 MG TABLET PO SCH (09:29)
[2019-04-08] MEDS: FLUTICASONE INH SCH ×2 (09:29→20:13)
[2019-04-08] MEDS: ASCORBIC ACID 500 MG TABLET PO SCH (09:29)
[2019-04-08] MEDS: NICOTINE 21 MG/24 HR PATCH.TD24 TD SCH (12:22)
[2019-04-09] VITALS (12 sets, daily range): BP systolic 112–152; BP diastolic 55–79
[2019-04-09] MEDS: LEVALBUTEROL TARTRATE INH SCH ×4 (04:50→20:04)
[2019-04-09] MEDS: METOPROLOL TARTRATE 25 MG TABLET PO SCH ×2 (05:50→05:52)
[2019-04-09] MEDS: ALBUTEROL/IPRATROPIUM 2.5MG/0.5MG, 3 ML NPPB SCH ×4 (07:45→19:23)
[2019-04-09] MEDS ORDERED: METOPROLOL TARTRATE 25 MG TABLET PO ONE (08:30)
[2019-04-09] MEDS: FLUTICASONE INH SCH ×2 (09:32→20:04)
[2019-04-09] MEDS: SALMETEROL INH SCH ×2 (09:32→20:04)
[2019-04-09] MEDS: DIGOXIN 0.125 MG TABLET PO SCH (09:32)
[2019-04-09] MEDS: GUAIFENESIN ER 600 MG TABLET PO SCH ×2 (09:33→20:03)
[2019-04-09] MEDS: URSODIOL 300 MG CAPSULE PO SCH ×2 (09:33→20:03)
[2019-04-09] MEDS: VALSARTAN 160 MG TABLET PO SCH (09:34)
[2019-04-09] MEDS: FERROUS SULFATE 325 MG TABLET PO SCH (09:34)
[2019-04-09] MEDS: CHOLECALCIFEROL 5,000u TAB PO SCH (09:34)
[2019-04-09] MEDS: ASCORBIC ACID 500 MG TABLET PO SCH (09:34)
[2019-04-09] MEDS: NICOTINE 21 MG/24 HR PATCH.TD24 TD SCH (13:04)
[2019-04-09 13:19] LABS: ANION GAP 3 mmol/L (5-15); CALCIUM 9.8 mg/dL (8.5-10.1); CHLORIDE 105 mmol/L (98-107); CREATININE 0.44 mg/dL (0.55-1.02)
[2019-04-09] MEDS: METOPROLOL TARTRATE 50 MG TABLET PO SCH (18:24)
[2019-04-10 02:16] VITALS: BP 173/75
[2019-04-10] MEDS: OXYcodone IR 5MG TABLET PO PRN (02:52)
[2019-04-10 05:34] LABS: BASOPHILS # (AUTO) 0.02 x10^3/uL (0-0.1); BASOPHILS % (AUTO) 0 % (0-1); EOSINOPHILS # (AUTO) 0.23 x10^3/uL (0-0.4); EOSINOPHILS % (AUTO) 3 % (1-7); LYMPHOCYTES % (AUTO) 15 % (22-44); MD NO; MEAN CORPUSCULAR HEMOGLOBIN 28.8 pg (27.0-34.8); MEAN CORPUSCULAR HGB CONC 33.3 g/dL (32.4-35.8); MEAN CORPUSCULAR VOLUME 86.6 fL (80-100); MEAN PLATELET VOLUME 7.2 fL (7.4-10.4); MONOCYTES # (AUTO) 0.91 x10^3/uL (0.2-0.8); MONOCYTES % (AUTO) 12 % (2-9); NEUTROPHILS # (AUTO) 5.24 x10^3/uL (1.8-6.8); NEUTROPHILS % (AUTO) 70 % (42-75); PLATELET COUNT 300 x10^3/uL (130-400); RED BLOOD COUNT 2.85 x10^6/uL (3.82-5.3); RED CELL DISTRIBUTION WIDTH 17.4 % (9.6-15.2)
[2019-04-10 05:45] LABS: CHLORIDE 105 mmol/L (98-107)
[2019-04-10 06:01] LABS: ANION GAP 4 mmol/L (5-15); CALCIUM 9.1 mg/dL (8.5-10.1); CREATININE 0.45 mg/dL (0.55-1.02)
[2019-04-10 06:22] VITALS: BP 125/66
[2019-04-10] MEDS: LEVALBUTEROL TARTRATE INH SCH ×3 (06:23→16:00)
[2019-04-10] MEDS: METOPROLOL TARTRATE 50 MG TABLET PO SCH (06:23)
[2019-04-10] MEDS: ALBUTEROL/IPRATROPIUM 2.5MG/0.5MG, 3 ML NPPB SCH ×3 (07:00→15:22)
[2019-04-10] MEDS ORDERED: MAGNESIUM SULFATE PMX 4GM/100M 100 ML IV ONE (08:30)
[2019-04-10] MEDS: VALSARTAN 160 MG TABLET PO SCH (08:31)
[2019-04-10] MEDS: CHOLECALCIFEROL 5,000u TAB PO SCH (08:31)
[2019-04-10] MEDS: GUAIFENESIN ER 600 MG TABLET PO SCH (08:32)
[2019-04-10] MEDS: FLUTICASONE INH SCH (08:32)
[2019-04-10] MEDS: URSODIOL 300 MG CAPSULE PO SCH (08:32)
[2019-04-10] MEDS: ASCORBIC ACID 500 MG TABLET PO SCH (08:32)
[2019-04-10] MEDS: SALMETEROL INH SCH (08:32)
[2019-04-10] MEDS: FERROUS SULFATE 325 MG TABLET PO SCH (08:32)
[2019-04-10] MEDS: DIGOXIN 0.125 MG TABLET PO SCH (08:32)
[2019-04-10] MEDS ORDERED: DIGO125T PO (11:12)
[2019-04-10] MEDS ORDERED: METO50TA82 PO (11:12)
[2019-04-10 13:14] VITALS: BP 147/71
[2019-04-10] MEDS: NICOTINE 21 MG/24 HR PATCH.TD24 TD SCH (14:20)
== END 2019-04-10 16:42 | disposition home or self-care (01) | DRG 378 ==
LOC: 4EST 10:50 → DCLOUNGE 04-10 16:25
PROVIDERS: ADMIT Internal Medicine; ATTEND Internal Medicine
PROC: B4101ZZ Fluoroscopy of Abdominal Aorta using Low Osmolar Contrast (ICD-10-PCS; 2019-04-07)
PROC: B41J1ZZ Fluoroscopy of Other Lower Arteries using Low Osmolar Contrast (ICD-10-PCS; 2019-04-07)
PROC: B4141ZZ Fluoroscopy of Superior Mesenteric Artery using Low Osmolar Contrast (ICD-10-PCS; 2019-04-07)
PROC: B4181ZZ Fluoroscopy of Bilateral Renal Arteries using Low Osmolar Contrast (ICD-10-PCS; 2019-04-07)
PROC: 30233N1 Transfusion of Nonautologous Red Blood Cells into Peripheral Vein, Percutaneous Approach (ICD-10-PCS; principal; 2019-04-09)
DX: K92.2 Gastrointestinal hemorrhage, unspecified (principal); I50.22 Chronic systolic (congestive) heart failure; J96.11 Chronic respiratory failure with hypoxia; D62 Acute posthemorrhagic anemia; I47.1 Supraventricular tachycardia; I11.0 Hypertensive heart disease with heart failure; I25.10 Atherosclerotic heart disease of native coronary artery without angina pectoris; I48.0 Paroxysmal atrial fibrillation; I71.4 Abdominal aortic aneurysm, without rupture; I70.0 Atherosclerosis of aorta; J44.9 Chronic obstructive pulmonary disease, unspecified; K64.4 Residual hemorrhoidal skin tags; K64.8 Other hemorrhoids; K74.60 Unspecified cirrhosis of liver; Z82.3 Family history of stroke; Z83.3 Family history of diabetes mellitus; Z90.710 Acquired absence of both cervix and uterus; Z99.81 Dependence on supplemental oxygen; Z88.0 Allergy status to penicillin; Z87.891 Personal history of nicotine dependence; Z88.4 Allergy status to anesthetic agent; Z88.8 Allergy status to other drugs, medicaments and biological substances
CPT/HCPCS: 36415; 36430; 37244; 71045; 76937; 80048; 80053; 83735; 84100; 85014; 85018; 85025; 85610; 85730; 86850; 86900; 86923; 93005; 94640; 99156; 99157; C1894; G0378; J2250; J3010; J7620; C1751; J2310; J3475; P9016

== ENCOUNTER 2020-06-10 12:00 | Observation (INO) | payer MEDICARE, MEDICAID ==
[~2020-06-10] VITALS: Ht 172.7 cm; Wt 74.5 kg
[~2020-06-10 12:00] MED LIST changes: -ASCO500T6 PO; +ASCO500T9 PO; +CHOL500062 PO; +DIGO125T85 PO; +FLUT15.87 NAS; +FLUT1DIS IH; +IPRA3AMP30 NEB; -MECL12.52 PO; +MECL12.581 PO; +METO50TA82 PO; +OMEP40CA42 PO; -OMEP40CA6 PO; +ROFL500T PO; +ROSU5TAB PO
--- NOTE | 2020-06-10 12:10 | NUR ---
PT BIBA. PER EMS REPORT SHE WAS AT [facility] WHEN SHE DEVELOPED CP AT 0900. [facility] DID AN EKG WHICH SHOWED AFIB W RVR. PT IS NOT ON ANTICOAGULANTS DUE TO RECENT GI BLEEDING. PER EMS REPORT [facility] GAVE PT NITRO AND 81 MG OF ASA, EMS GAVE PT 100ML OF NS AND 243MG OF ASA. EKG DONE UPON ARRIVAL, SHOWED AFIB WITH RVR.
--- NOTE | 2020-06-10 12:17 | NUR ---
FIRST EKG DONE AT 1154 AND REPEAT DONE AT 1203.
[2020-06-10] MEDS ORDERED: DILTIAZEM 5 MG/ML, 5ML IVPush PRN (12:30)
[2020-06-10] MEDS ORDERED: SODIUM CHLORIDE FLUSH 10ML SYR IVF ONE (12:30)
[2020-06-10] MEDS ORDERED: SODIUM CHLORIDE 0.9% 1,000ML IVBOLUS ONE (12:30)
[2020-06-10 12:40] LABS: BASOPHILS # (AUTO) 0.02 x10^3/uL (0-0.1); BASOPHILS % (AUTO) 0 % (0-1); EOSINOPHILS # (AUTO) 0.08 x10^3/uL (0-0.4); EOSINOPHILS % (AUTO) 1 % (1-7); LYMPHOCYTES # (AUTO) 1.07 x10^3/uL (1-3.4); LYMPHOCYTES % (AUTO) 9 % (22-44); MD NO; MEAN CORPUSCULAR HEMOGLOBIN 28.3 pg (27.0-34.8); MEAN CORPUSCULAR HGB CONC 32.5 g/dL (32.4-35.8); MEAN PLATELET VOLUME 7.4 fL (7.4-10.4); MONOCYTES # (AUTO) 1.02 x10^3/uL (0.2-0.8); MONOCYTES % (AUTO) 8 % (2-9); NEUTROPHILS # (AUTO) 10.14 x10^3/uL (1.8-6.8); NEUTROPHILS % (AUTO) 82 % (42-75); PLATELET COUNT 438 x10^3/uL (130-400); RED BLOOD COUNT 3.86 x10^6/uL (3.82-5.3); RED CELL DISTRIBUTION WIDTH 15.4 % (9.6-15.2)
[2020-06-10 12:48] LABS: ALANINE AMINOTRANSFERASE 27 U/L (12-78); ALBUMIN 3.1 g/dL (3.4-5.0); ANION GAP 3 mmol/L (5-15); CALCIUM 11.7 mg/dL (8.5-10.1); CHLORIDE 93 mmol/L (98-107); CREATININE 0.78 mg/dL (0.55-1.02)
[2020-06-10 12:51] LABS: INTERNATIONAL NORMALIZED RATIO 0.94 (0.93-1.1); PROTHROMBIN TIME 9.7 Seconds (9.6-11.5)
[2020-06-10 12:53] LABS: ALKALINE PHOSPHATASE 244 U/L (45-117); BILIRUBIN,TOTAL 0.5 mg/dL (0.2-1.0); TOTAL PROTEIN 6.5 g/dL (6.4-8.2); TROPONIN I 0.022 ng/mL (0.000-0.045)
[2020-06-10] MEDS ORDERED: DILTIAZEM 5 MG/ML, 5ML IVPush ONE (13:00)
--- NOTE | 2020-06-10 13:10 | NUR ---
PT WAS MEDICATED WITH 2 DOSES OF CARDIZEM PER EMAR WELL A FLUID BOLUS. REPEAT EKG WAS DONE AND PT WAS CONVERTED INTO NSR.
--- NOTE | 2020-06-10 13:46 | NUR ---
PT RESTING IN [facility].
[2020-06-10] MEDS ORDERED: SUCR1TAB33 PO (13:55)
[2020-06-10] MEDS ORDERED: VALS160T3 PO (13:55)
[2020-06-10] MEDS ORDERED: CHLO25TA PO (13:55)
[2020-06-10] MEDS ORDERED: POLYETHYLENE GLYCOL 17 GM PACKET PO PRN (14:30)
[2020-06-10] MEDS ORDERED: ONDANSETRON ODT 4 MG PO PRN (14:30)
[2020-06-10] MEDS ORDERED: ACETAMINOPHEN 325 MG TABLET PO PRN (14:30)
[2020-06-10] MEDS ORDERED: morphine SULFATE 10 MG/ML, 1ML IVPush PRN (14:30)
[2020-06-10] MEDS ORDERED: ONDANSETRON 2MG/ML, 2ML IVPush PRN (14:30)
[2020-06-10] MEDS ORDERED: SENNA/DOCUSATE TABLET PO PRN (14:30)
--- NOTE | 2020-06-10 14:33 | NUR ---
REPORT GIVEN TO DANIEL SANTOS.
[2020-06-10] MEDS ORDERED: NICOTINE 21 MG/24 HR PATCH.TD24 TD ONE (15:00)
[2020-06-10 15:13] VITALS: BP 132/62
[2020-06-10] MEDS ORDERED: LEVALBUTEROL TARTRATE INH SCH (16:00)
[2020-06-10] MEDS ORDERED: ALBUTEROL/IPRATROPIUM 2.5MG/0.5MG, 3 ML NEB SCH (16:00)
[2020-06-10] MEDS: POTASSIUM CHLORIDE 20 MEQ TAB.ER.PRT PO SCH ×2 (17:45→21:08)
[2020-06-10] MEDS ORDERED: METOPROLOL TARTRATE 50 MG TAB PO SCH (18:00)
[2020-06-10 18:27] LABS: TROPONIN I 0.402 ng/mL (0.000-0.045)
[2020-06-10 18:43] LABS: MICROSCOPIC NOT IND
[2020-06-10] MEDS ORDERED: FURO40TA6 PO (18:53)
[2020-06-10] MEDS ORDERED: METO-264 PO (18:53)
[2020-06-10] MEDS ORDERED: UMEC62.5 INH (18:53)
[2020-06-10 19:02] VITALS: BP 134/62
[2020-06-10] MEDS: LEVALBUTEROL TARTRATE 45 MCG INH SCH (19:50)
[2020-06-10] MEDS ORDERED: ATORVASTATIN 20 MG TABLET PO SCH (21:00)
[2020-06-10] MEDS ORDERED: TEMPLATE NON-FORMULARY MED. (Fluticasone/Salmeterol** (Advair 100-50 Diskus**) 1 PUFF) IH SCH (21:00)
[2020-06-10] MEDS: FLUTICASONE NASAL SPRAY 16GM NAS SCH (21:08)
[2020-06-11 00:43] VITALS: BP 135/73
[2020-06-11 00:56] LABS: TROPONIN I 0.557 ng/mL (0.000-0.045)
[2020-06-11] MEDS ORDERED: METOPROLOL SUCCINATE 50 MG TAB.ER.24H PO SCH (06:00)
[2020-06-11] MEDS: LEVALBUTEROL TARTRATE 45 MCG INH SCH ×3 (06:12→15:37)
[2020-06-11 08:09] LABS: ANION GAP 3 mmol/L (5-15); CALCIUM 10.6 mg/dL (8.5-10.1); CHLORIDE 98 mmol/L (98-107); CREATININE 0.62 mg/dL (0.55-1.02)
[2020-06-11 08:14] LABS: BASOPHILS # (AUTO) 0.03 x10^3/uL (0-0.1); BASOPHILS % (AUTO) 0 % (0-1); EOSINOPHILS # (AUTO) 0.16 x10^3/uL (0-0.4); EOSINOPHILS % (AUTO) 2 % (1-7); LYMPHOCYTES # (AUTO) 1.08 x10^3/uL (1-3.4); LYMPHOCYTES % (AUTO) 12 % (22-44); MD NO; MEAN CORPUSCULAR HEMOGLOBIN 27.6 pg (27.0-34.8); MEAN CORPUSCULAR HGB CONC 31.6 g/dL (32.4-35.8); MEAN PLATELET VOLUME 7.9 fL (7.4-10.4); MONOCYTES # (AUTO) 0.81 x10^3/uL (0.2-0.8); MONOCYTES % (AUTO) 9 % (2-9); NEUTROPHILS % (AUTO) 78 % (42-75); PLATELET COUNT 356 x10^3/uL (130-400); RED CELL DISTRIBUTION WIDTH 15.6 % (9.6-15.2)
[2020-06-11 08:15] VITALS: BP 140/73
[2020-06-11] MEDS ORDERED: FERROUS SULFATE 325 MG TABLET PO SCH (09:00)
[2020-06-11] MEDS ORDERED: DIGOXIN 0.125 MG TABLET PO SCH (09:00)
[2020-06-11] MEDS ORDERED: FLUTICASONE/VILANTEROL 100-25MCG/INH INH SCH (09:00)
[2020-06-11] MEDS ORDERED: ROFLUMILAST 500 MCG PO SCH (09:00)
[2020-06-11] MEDS ORDERED: REGADENOSON 0.4 MG/5 ML SYRINGE ONE (09:19)
[2020-06-11 13:40] VITALS: BP 151/70
[2020-06-11] MEDS: FLUTICASONE NASAL SPRAY 16GM NAS SCH (13:43)
[2020-06-11] MEDS ORDERED: VALSARTAN 160 MG TABLET PO SCH (16:00)
[2020-06-11] MEDS ORDERED: METO-95 PO (17:06)
== END 2020-06-11 18:46 | disposition home or self-care (01) ==
LOC: ED 12:40 → 5SO 13:45 → INTOOBSV 13:45
PROVIDERS: ADMIT Family Medicine; ATTEND Family Medicine
DX: R07.9 Chest pain, unspecified (principal); I48.0 Paroxysmal atrial fibrillation; I21.A1 Myocardial infarction type 2; J44.1 Chronic obstructive pulmonary disease with (acute) exacerbation; J96.02 Acute respiratory failure with hypercapnia; I11.0 Hypertensive heart disease with heart failure; I71.4 Abdominal aortic aneurysm, without rupture; F17.200 Nicotine dependence, unspecified, uncomplicated; K74.60 Unspecified cirrhosis of liver; I50.42 Chronic combined systolic (congestive) and diastolic (congestive) heart failure; D64.9 Anemia, unspecified; Z79.01 Long term (current) use of anticoagulants; Z79.899 Other long term (current) drug therapy
CPT/HCPCS: 36415; 71045; 78452; 80048; 80053; 80162; 81003; 83605; 84145; 84443; 84484; 85025; 85610; 85730; 93005; 93017; 94640; 96374; 99285; A9502; C9898; G0378; J2785; 96372

== ENCOUNTER 2020-11-05 18:09 | Inpatient (IN) | payer MEDICARE, MEDICAID ==
[~2020-11-05] VITALS: Ht 170.2 cm; Wt 71.8 kg
[~2020-11-05 18:09] MED LIST changes: +BUDE0.5A11 NEB; +CHLO25TA PO; +FURO40TA6 PO; +GUAI12009 PO; -MECL12.581 PO; +MECL12.582 PO; +METH4TAB PO; +METO-264 PO; +METO-95 PO; +MONT10TA17 PO; -NICO-487 TD; +NICO-587 TD; +SUCR1TAB33 PO
--- NOTE | 2020-11-05 18:13 | NUR ---
patient arrives with [facility] from her home in [place] where she states she had chest pain, initially afib with rvr, and now showing nsr per medics. she is aox4.
--- NOTE | 2020-11-05 18:43 | NUR ---
PATIENT GIVEN BEDSIDE COMMODE AND WITH HELP ASSISTED HER TO USE IT. HAD 300 YELLOW URINE OUT.
[2020-11-05] MEDS ORDERED: SODIUM CHLORIDE FLUSH 10ML SYR IVF ONE (19:00)
--- NOTE | 2020-11-05 19:01 | NUR ---
Anat Jimer (daughter): [phone]. Called once. just wants update.
[2020-11-05 19:21] LABS: BASOPHILS % (AUTO) 1 % (0-1); EOSINOPHILS % (AUTO) 1 % (1-7); LYMPHOCYTES % (AUTO) 10 % (22-44); MEAN CORPUSCULAR HGB CONC 32.9 g/dL (32.4-35.8); MEAN PLATELET VOLUME 7.4 fL (7.4-10.4); MONOCYTES % (AUTO) 8 % (2-9); NEUTROPHILS % (AUTO) 80 % (42-75); PLATELET COUNT 313 x10^3/uL (130-400); RED BLOOD COUNT 3.84 x10^6/uL (3.82-5.3); RED CELL DISTRIBUTION WIDTH 16.1 % (9.6-15.2)
[2020-11-05 19:22] LABS: MD NO
[2020-11-05 19:45] LABS: ALBUMIN 3.1 g/dL (3.4-5.0); ANION GAP 4 mmol/L (5-15); CALCIUM 9.8 mg/dL (8.5-10.1); CHLORIDE 98 mmol/L (98-107); CREATININE 0.67 mg/dL (0.55-1.02)
[2020-11-05 19:48] LABS: TROPONIN I < 0.015 ng/mL (0.000-0.045)
--- NOTE | 2020-11-05 22:20 | NUR ---
Pt with stable VS. NSR on monitor. Pt has no complaints. Breathing non-labored. Pt given crackers per request and water. Pt tolerated well. Pt on phone, speaking with family. Pt denies any needs at this time. Report called to Roselyn SANCHEZ. Pt ready for transport.
[2020-11-05 22:54] VITALS: BP 122/75
[2020-11-05] MEDS ORDERED: URSO300C27 PO (23:28)
[2020-11-05] MEDS ORDERED: POTASSIUM CHLORIDE 20 MEQ TAB.ER.PRT PO ONE (23:30)
[2020-11-05] MEDS ORDERED: DILTIAZEM 5 MG/ML, 5ML IVPush PRN (23:30)
[2020-11-05] MEDS ORDERED: ONDANSETRON 2MG/ML, 2ML IVPush PRN (23:30)
[2020-11-05] MEDS ORDERED: ENOXAPARIN 40 MG/0.4 ML SQ SCH (23:30)
[2020-11-05] MEDS: ATORVASTATIN 20 MG TABLET PO SCH (23:30)
[2020-11-05] MEDS ORDERED: MELATONIN 5 MG TABLET PO PRN (23:30)
[2020-11-05] MEDS ORDERED: morphine SULFATE 10 MG/ML, 1ML IV PRN (23:30)
[2020-11-05] MEDS ORDERED: ACETAMINOPHEN 325 MG TABLET PO PRN (23:30)
[2020-11-05] MEDS ORDERED: ENALAPRILAT 1.25 MG/ML, 2ML IVPush PRN (23:30)
[2020-11-05] MEDS: NICOTINE 14MG/24 HR PATCH.TD24 TD SCH (23:54)
[2020-11-05] MEDS: MONTELUKAST 10 MG TABLET PO SCH (23:55)
[2020-11-05 23:57] LABS: ALANINE AMINOTRANSFERASE 38 U/L (12-78); ALBUMIN 2.9 g/dL (3.4-5.0); BILIRUBIN, DIRECT 0.2 mg/dL (0.1-0.2)
[2020-11-06 00:07] LABS: ALKALINE PHOSPHATASE 216 U/L (45-117); BILIRUBIN,INDIRECT 0.4 mg/dL (0.0-2.0); BILIRUBIN,TOTAL 0.6 mg/dL (0.2-1.0); TOTAL PROTEIN 6.2 g/dL (6.4-8.2); TROPONIN I 0.031 ng/mL (0.000-0.045)
[2020-11-06] MEDS ORDERED: MAGNESIUM SULFATE PMX 2GM/50ML 50 ML IV ONE (01:00)
[2020-11-06 02:06] VITALS: BP 121/68
[2020-11-06 05:37] LABS: BASOPHILS % (AUTO) 1 % (0-1); EOSINOPHILS % (AUTO) 2 % (1-7); LYMPHOCYTES % (AUTO) 11 % (22-44); MEAN CORPUSCULAR HEMOGLOBIN 29.2 pg (27.0-34.8); MEAN CORPUSCULAR HGB CONC 33.3 g/dL (32.4-35.8); MONOCYTES % (AUTO) 10 % (2-9); NEUTROPHILS % (AUTO) 76 % (42-75); PLATELET COUNT 286 x10^3/uL (130-400); RED BLOOD COUNT 3.27 x10^6/uL (3.82-5.3); RED CELL DISTRIBUTION WIDTH 16.2 % (9.6-15.2)
[2020-11-06 05:43] LABS: CHLORIDE 100 mmol/L (98-107)
[2020-11-06 05:53] LABS: ANION GAP 5 mmol/L (5-15); CALCIUM 9.7 mg/dL (8.5-10.1); CREATININE 0.51 mg/dL (0.55-1.02)
[2020-11-06 05:54] LABS: CHOL/HDL RATIO 3.5; CHOLESTEROL, TOTAL 208 mg/dL (140-239); HDL CHOL % 28 % (28-40); HDL CHOLESTEROL (DIRECT) 59 mg/dL (40-60); LDL CHOLESTEROL,CALCULATED 107 mg/dL (54-169); LDL/HDL RATIO 1.8 (0.5-3.0); TRIGLYCERIDES 208 mg/dL (50-200); TROPONIN I 0.036 ng/mL (0.000-0.045); VLDL CHOLESTEROL 42 mg/dL (0-25)
[2020-11-06 05:57] LABS: MD NO
[2020-11-06] MEDS ORDERED: ASPIRIN 325 MG TABLET EC PO SCH (06:00)
[2020-11-06 07:20] VITALS: BP 124/70
[2020-11-06] MEDS ORDERED: PANTOPRAZOLE 40MG TABLET PO SCH (07:30)
[2020-11-06] MEDS: TIOTROPIUM BROMIDE 18 MCG/INH INH SCH (07:35)
[2020-11-06] MEDS: ALBUTEROL-IPRATROPIUM MDI INH INH SCH ×4 (07:35→20:00)
[2020-11-06] MEDS: FLUTICASONE/VILANTEROL 200-25MCG/INH INH SCH (07:35)
[2020-11-06] MEDS: SUCRALFATE 1 GM TABLET PO SCH ×3 (08:14→17:00)
[2020-11-06] MEDS: POTASSIUM CHLORIDE 20 MEQ TAB.ER.PRT PO SCH ×2 (08:14→17:11)
[2020-11-06] MEDS: CHLORTHALIDONE 25 MG TABLET PO SCH (08:15)
[2020-11-06] MEDS: DIGOXIN 0.125 MG TABLET PO SCH (08:15)
[2020-11-06] MEDS: METOPROLOL SUCCINATE 100 MG TAB.ER.24H PO SCH ×2 (08:15→20:06)
[2020-11-06] MEDS: VALSARTAN 160 MG TABLET PO SCH (08:16)
[2020-11-06] MEDS ORDERED: BUDESONIDE 0.5 MG/2 ML INHA NEB SCH (09:00)
[2020-11-06] MEDS ORDERED: METOPROLOL SUCCINATE 100 MG TAB.ER.24H PO SCH (09:00)
[2020-11-06] MEDS ORDERED: SENNA/DOCUSATE TABLET PO SCH (09:00)
[2020-11-06] MEDS ORDERED: ALBUTEROL/IPRATROPIUM 2.5MG/0.5MG, 3 ML NEB SCH (09:00)
[2020-11-06 13:09] VITALS: BP 132/74
[2020-11-06 20:02] VITALS: BP 137/72
[2020-11-06] MEDS: MONTELUKAST 10 MG TABLET PO SCH (20:06)
[2020-11-06] MEDS: ATORVASTATIN 20 MG TABLET PO SCH (20:07)
[2020-11-06] MEDS: NICOTINE 14MG/24 HR PATCH.TD24 TD SCH (23:29)
[2020-11-07 01:01] VITALS: BP 132/68
[2020-11-07 04:57] LABS: BASOPHILS % (AUTO) 1 % (0-1); EOSINOPHILS % (AUTO) 4 % (1-7); LYMPHOCYTES % (AUTO) 18 % (22-44); MEAN CORPUSCULAR HEMOGLOBIN 29.4 pg (27.0-34.8); MEAN PLATELET VOLUME 7.7 fL (7.4-10.4); MONOCYTES % (AUTO) 13 % (2-9); NEUTROPHILS % (AUTO) 64 % (42-75); PLATELET COUNT 251 x10^3/uL (130-400); RED BLOOD COUNT 3.12 x10^6/uL (3.82-5.3); RED CELL DISTRIBUTION WIDTH 16.1 % (9.6-15.2)
[2020-11-07 05:02] LABS: MD NO
[2020-11-07 05:09] LABS: ANION GAP 3 mmol/L (5-15); CALCIUM 9.1 mg/dL (8.5-10.1); CHLORIDE 101 mmol/L (98-107)
[2020-11-07 05:19] LABS: % IRON SATURATION 20 % (20-55); CREATININE 0.54 mg/dL (0.55-1.02); IRON LEVEL 52 mcg/dL (50-170); TOTAL IRON BINDING CAPACITY 265 mcg/dL (250-450)
[2020-11-07] MEDS: ALBUTEROL-IPRATROPIUM MDI INH INH SCH ×3 (07:00→15:00)
[2020-11-07 07:20] VITALS: BP 135/74
[2020-11-07] MEDS: TIOTROPIUM BROMIDE 18 MCG/INH INH SCH (07:20)
[2020-11-07] MEDS: FLUTICASONE/VILANTEROL 200-25MCG/INH INH SCH (07:20)
[2020-11-07] MEDS: VALSARTAN 160 MG TABLET PO SCH (07:40)
[2020-11-07] MEDS: METOPROLOL SUCCINATE 100 MG TAB.ER.24H PO SCH (07:41)
[2020-11-07] MEDS: DIGOXIN 0.125 MG TABLET PO SCH (07:41)
[2020-11-07] MEDS: SUCRALFATE 1 GM TABLET PO SCH ×2 (07:41→12:00)
[2020-11-07] MEDS: CHLORTHALIDONE 25 MG TABLET PO SCH (07:41)
[2020-11-07] MEDS ORDERED: FERROUS SULFATE 325 MG TABLET PO SCH (09:00)
[2020-11-07 12:23] VITALS: BP 147/74
[2020-11-07] MEDS ORDERED: METO-95 PO (14:58)
== END 2020-11-07 16:11 | disposition home or self-care (01) | DRG 189 ==
LOC: ED 19:22 → EDIP 21:32 → 5SO 22:44 → DCLOUNGE 11-07 16:00
PROVIDERS: ADMIT Family Medicine; ATTEND Internal Medicine
DX: J96.01 Acute respiratory failure with hypoxia (principal); D68.69 Other thrombophilia; I24.9 Acute ischemic heart disease, unspecified; I48.0 Paroxysmal atrial fibrillation; J96.02 Acute respiratory failure with hypercapnia; F17.200 Nicotine dependence, unspecified, uncomplicated; I11.0 Hypertensive heart disease with heart failure; I25.10 Atherosclerotic heart disease of native coronary artery without angina pectoris; I50.9 Heart failure, unspecified; I70.0 Atherosclerosis of aorta; J44.9 Chronic obstructive pulmonary disease, unspecified; K74.60 Unspecified cirrhosis of liver; Z90.710 Acquired absence of both cervix and uterus; D64.9 Anemia, unspecified; G47.30 Sleep apnea, unspecified; K21.9 Gastro-esophageal reflux disease without esophagitis; Z87.01 Personal history of pneumonia (recurrent); E78.5 Hyperlipidemia, unspecified; Z79.899 Other long term (current) drug therapy; Z79.891 Long term (current) use of opiate analgesic; Z79.01 Long term (current) use of anticoagulants; Z83.3 Family history of diabetes mellitus; Z82.49 Family history of ischemic heart disease and other diseases of the circulatory system; Z88.5 Allergy status to narcotic agent; Z88.8 Allergy status to other drugs, medicaments and biological substances; Z88.0 Allergy status to penicillin; Z80.9 Family history of malignant neoplasm, unspecified; Z82.0 Family history of epilepsy and other diseases of the nervous system; E87.6 Hypokalemia; M19.90 Unspecified osteoarthritis, unspecified site; E83.42 Hypomagnesemia; I71.4 Abdominal aortic aneurysm, without rupture
CPT/HCPCS: 36415; 71045; 80048; 80061; 80076; 82040; 82728; 83540; 83550; 83690; 83735; 83880; 84100; 84443; 84484; 85025; 93005; 93306; 94640; 96372; 99285; G0378; J1650; J3475

== ENCOUNTER 2020-11-09 18:35 | Emergency (ER) | payer MEDICARE, MEDICAID ==
[~2020-11-09 18:35] MED LIST changes: -MECL12.582 PO; +MECL12.590 PO
--- NOTE | 2020-11-09 18:55 | NUR ---
PT IS A 75F BIB EMS FROM HER HOME IN [facility] AFTER COMPLAINTS OF CP. SHE WAS JUST D/C FROM HERE SATURDAY FOR AFIB WITH RVR. SHE TOOK 1 NITRO AT HOME AND 5 ASPIRIN. SHE IS NOW PAIN FREE. EMS DID NOT SEE ANY AFIB ON THEIR MONITORS. THEY PLACED A 20G IN THE RIGHT AC. SHE IS NORMALLY ON 4L HOME O2. SHE RECEIVED 600ML OF NS EN ROUTE. PROVIDER AT THE BEDSIDE FOR EVAL AND POC. CARDIAC, BP, AND SP02 MONITORS IN PLACE. EKG DONE. CALL LIGHT WITHIN REACH.
--- NOTE | 2020-11-09 18:59 | NUR ---
REPORT TO DONNELL SANCHEZ.
[2020-11-09 19:14] LABS: BASOPHILS % (AUTO) 1 % (0-1); EOSINOPHILS % (AUTO) 2 % (1-7); LYMPHOCYTES % (AUTO) 9 % (22-44); MEAN CORPUSCULAR HEMOGLOBIN 28.7 pg (27.0-34.8); MEAN CORPUSCULAR HGB CONC 32.4 g/dL (32.4-35.8); MEAN PLATELET VOLUME 7.3 fL (7.4-10.4); MONOCYTES % (AUTO) 8 % (2-9); NEUTROPHILS % (AUTO) 81 % (42-75); PLATELET COUNT 346 x10^3/uL (130-400); RED BLOOD COUNT 3.05 x10^6/uL (3.82-5.3); RED CELL DISTRIBUTION WIDTH 15.8 % (9.6-15.2)
[2020-11-09 19:17] LABS: MD NO
[2020-11-09 19:26] LABS: ALBUMIN 3.1 g/dL (3.4-5.0); ANION GAP 5 mmol/L (5-15); CALCIUM 10.7 mg/dL (8.5-10.1); CHLORIDE 97 mmol/L (98-107); CREATININE 0.84 mg/dL (0.55-1.02)
[2020-11-09] MEDS ORDERED: NITR0.4T28 SL (19:28)
[2020-11-09 19:30] LABS: TROPONIN I < 0.015 ng/mL (0.000-0.045)
--- NOTE | 2020-11-09 19:42 | NUR ---
ASSISTED PATIENT UP TO BSC. STEADY GAIT. CALL SRINIVASAN IN REACH. PATIENT DECLINES WARM BLANKET AT THIS TIME. DENIES PAIN
--- NOTE | 2020-11-09 20:45 | NUR ---
discharge instructions reviewed with patient. no further questions at this time. IV removed per dc protocol. all personal belongings with patient on dc. steady gait to . patient requires 4L via NC at all times. family driving to come picker and packer patient. patient wheeled to lobby in for oxygen use.
[2020-11-09 21:02] VITALS: BP 111/48
== END 2020-11-09 21:04 | disposition home or self-care (01) ==
LOC: ED 19:45
DX: M54.6 Pain in thoracic spine (principal); R07.89 Other chest pain; I48.91 Unspecified atrial fibrillation; I11.0 Hypertensive heart disease with heart failure; I50.9 Heart failure, unspecified; I25.10 Atherosclerotic heart disease of native coronary artery without angina pectoris; J44.9 Chronic obstructive pulmonary disease, unspecified; K21.9 Gastro-esophageal reflux disease without esophagitis; Z90.710 Acquired absence of both cervix and uterus; F17.200 Nicotine dependence, unspecified, uncomplicated
CPT/HCPCS: 36415; 71045; 80048; 82040; 84484; 85025; 93005; 99285